=== PATIENT | female | born 1965 | race Caucasian/White ===

== ENCOUNTER 2016-10-08 23:11 | Emergency (ER) | payer MEDICARE, OTHER ==
[2016-10-09 02:14] LABS: RED BLOOD COUNT 3.58 M/UL (4.00-5.10); WHITE BLOOD COUNT 10.2 K/UL (4.5-11.0)
[2017-02-14] MEDS ORDERED: CYMBALTA60 MG PO (20:40)
[2017-02-14] MEDS ORDERED: NORVASC 5 MG TAB5 MG PO (20:42)
[2017-02-14] MEDS ORDERED: DIABETES HEALT1 EAC1 PO (20:42)
[2017-02-14] MEDS ORDERED: COREG 25MG TAB25 MG PO (20:43)
[2017-02-14] MEDS ORDERED: ADULT LOW DOSE81 MG PO (20:43)
[2017-02-14] MEDS ORDERED: CLARITIN10 MG PO (20:43)
[2017-02-14] MEDS ORDERED: CATAPRES0.2 MG PO (20:44)
[2017-02-14] MEDS ORDERED: PLAVIX75 MG PO (20:44)
[2017-02-14] MEDS ORDERED: FAMOTIDINE20 MG PO (20:44)
[2017-02-14] MEDS ORDERED: NEURONTIN 400400 MG PO (20:45)
[2017-02-14] MEDS ORDERED: GABAPENTIN400 MG PO (20:45)
[2017-02-14] MEDS ORDERED: LEVEMIR100 UNIT/1 SQ (20:46)
[2017-02-14] MEDS ORDERED: SYNTHROID 50 M50 MCG PO (20:46)
[2017-02-14] MEDS ORDERED: METFORMIN HCL500 MG PO (20:46)
[2017-02-14] MEDS ORDERED: NOVOLIN R100 UNIT/1 SQ ×3 (20:47→20:48)
[2017-02-14] MEDS ORDERED: SINGULAIR10 MG PO (20:48)
[2017-02-14] MEDS ORDERED: CALCIUM + VITA1 EACH PO (20:49)
[2017-02-15] MEDS ORDERED: NITROSTAT0.4 MG SL (12:44)
[2017-02-15] MEDS ORDERED: IMDUR ER TAB 3030 MG PO (12:44)
== END 2016-10-09 03:28 | disposition home or self-care (01) ==
LOC: ER1 23:11
PROVIDERS: Family Medicine
DX: R51 Headache (principal); R20.2 Paresthesia of skin; E11.9 Type 2 diabetes mellitus without complications
CPT/HCPCS: 36415; 70450; 71010; 80053; 82550; 82553; 83874; 84484; 85025; 93005; 99284